=== PATIENT | female | born 1930 | race Caucasian/White ===

== ENCOUNTER 2017-03-15 06:41 | Observation (INO) ==
--- NOTE | 2017-03-15 06:52 | Emergency Department Note ---
Disposition Clinical Impression: Bronchitis, Hypoxia Disposition: Admitted As Inpatient Condition: Good Referrals: Zhang Thayer MD [Primary Care Provider] - URI/Sore Throat HPI - General Chief Complaint: ED Upper Respiratory Infection Stated Complaint: cough/sore throat Time Seen by Provider: 03/15/17 06:50 Source: patient Mode of arrival: private vehicle Limitations: no limitations Nursing Notes Reviewed: Yes Vital Signs Reviewed: Yes - History of Present Illness HPI Narrative: Patient presents to the ED stating that she thinks she has the flu. She is complaining of sore throat and cough for several days. States cough has been dry. She does admit to some shortness of breath and states she has had trouble breathing lying flat over the past 2 days. She also reports rhinorrhea, congestion and sneezing. Denies any fever or chills. No chest pain. No leg swelling. States her back hurts when she coughs. No abdominal pain, nausea, vomiting, diarrhea or constipation. No urinary symptoms. She denies any recent travel or sick contacts. Her only medical problems are hypothyroidism and arthritis. She is a nonsmoker. - Related Data Home Medications Medication Instructions Recorded Confirmed Levothyroxine [Synthroid] 25 mcg PO 0630 03/15/17 03/15/17 Previous Rx's Medication Instructions Recorded Naproxen [Naprosyn] 500 mg PO BID #60 tablet 12/21/15 Allergies Allergy/AdvReac Type Severity Reaction Status Date / Time No Known Allergies Allergy Verified 12/21/15 12:45 Constitutional: Denies: fever, chills, weakness, weight change Eyes: Denies: eye pain, eye discharge, vision change ENT ED: Reports: throat pain. Denies: ear pain, dental pain, hearing loss, epistaxis, congestion, dysphagia Cardiovascular: Denies: chest pain, palpitations, dyspnea on exertion, edema, syncope Respiratory: Reports: cough, dyspnea. Denies: wheezes, hemoptysis, stridor Gastrointestinal: Denies: abdominal pain, nausea, vomiting, diarrhea, constipation, hematemesis, melena, hematochezia Genitourinary: Denies: dysuria, frequency, hematuria, discharge Musculoskeletal: Reports: back pain. Denies: neck pain, arthralgia, myalgia Integumentary: Denies: rash, abrasion, lesions Neurological: Denies: headache, weakness, numbness, paresthesias, confusion, abnormal gait, vertigo Psychiatric: Denies: anxiety, depression, suicidal thoughts, homicidal thoughts , auditory hallucinations, visual hallucinations Endocrine: Denies: fatigue Hematological/Lymphatic: Denies: easy bleeding, easy bruising Allergic/Immunologic: Denies: facial swelling, urticaria URI PMH - Past Medical History Medical history: Reports: arthritis, thyroid disease Psychiatric history: Reports: no psych history - Social History Smoking Status: Never smoker Alcohol use: Reports: none Drug use: Reports: none Physical Exam - General Limitations: no limitations General appearance: alert, in no apparent distress - Head Head exam: atraumatic, normocephalic, normal inspection - Eye Eye exam: Present: normal appearance, PERRL, EOMI - ENT ENT exam: normal exam, normal oropharynx, mucous membranes moist, TM's normal bilaterally, normal external ear exam - Neck Neck exam: Present: normal inspection, full ROM, trachea midline. Absent: lymphadenopathy - Chest Chest inspection: Present: normal inspection, symmetric chest wall rise. Absent : tenderness - Respiratory Respiratory exam: Present: wheezes. Absent: respiratory distress - Expanded Respiratory Exam Location: wheezes: Left, Right, Upper, Lower (scattered) - Cardiovascular Cardiovascular exam: Present: normal rhythm, irregular rhythm, normal heart sounds - Abdominal Exam Abdominal exam: Present: soft, Non-Tender. Absent: tenderness, distention, guarding, rebound, rigidity - Extremities Exam Extremities exam: Present: normal inspection, full ROM. Absent: tenderness, pedal edema Course Course Narrative: Patient presents to the ED with 1 week of sore throat and cough as well as some recent shortness of breath. She is audibly wheezing on exam with oxygen saturation dropping into the upper 80s after ambulating to the treatment room. She is tachycardic with irregular rhythm on monitor and blood pressure is elevated as well. Will obtain EKG along with chest x-ray and given a nebulizer treatment. I suspect primary pulmonary pathology versus cardiac given her symptoms. Review of records show she did have pulmonary function test performed in January that showed an obstructive pattern. When questioned about this test she states she was sent to a information services vice president because of a nodule that they saw in her lung on imaging. She was not given any information about the results of her PFTs. - Reevaluation(s) Reevaluation #1: Wheezing has decreased after nebulizer treatment but is still present. Oxygen saturations was and low 90s and she was placed on 3 L oxygen. Flu swab is negative. Chest x-ray shows bronchitis but no evidence of pneumonia. We will give an additional nebulizer treatment, steroids and start on antibiotics. We will also give cough syrup. Reevaluation #2: Oxygen saturations improved into the mid 90s on 3 L but when she was taken off oxygen she desaturated back to 87% while at rest. She will require admission given her hypoxia. Patient was informed of all test results and need for admission and is agreeable. I spoken to the hospitalist continuous vulcanizing machine operator, Dr. Rosa, who has agreed to admit the patient. Vital Signs Temperature 97.9 F 03/15/17 06:44 Pulse Rate 79 03/15/17 06:44 Respiratory Rate 18 03/15/17 06:44 Blood Pressure 162/98 03/15/17 06:44 O2 Sat by Pulse Oximetry 96 03/15/17 06:44 Temperature 97.9 F 03/15/17 06:44 Pulse Rate 84 03/15/17 08:30 Respiratory Rate 18 03/15/17 08:30 Blood Pressure 158/85 03/15/17 08:30 O2 Sat by Pulse Oximetry 90 03/15/17 08:30 Oxygen Delivery Oxygen Delivery Nasal Cannula Upper Respiratory Infection - Differential Diagnosis Differential Diagnosis: Likely: upper respiratory infection, other viral infection, bronchitis, pneumonia - Lab Data Lab results reviewed: Yes I reviewed the patient's lab results. - Radiology Data Radiology results reviewed: Yes I reviewed the patient's radiology results. ITS Impressions Chest X-Ray 03/15/17 07:02 IMPRESSION: Bronchitis, no evidence of pneumonia D/ / Hernando Fox MD / Hernando Fox MD Interpreting Provider: Hernando Fox MD
[2017-03-15] MEDS ORDERED: Ipratropium/Albuterol Neb 3 ML IH ONE ×2 (07:02→08:03)
[2017-03-15] MEDS ORDERED: methylPREDNISolone 125 MG/2 ML VIAL IM STA (07:56)
[2017-03-15] MEDS ORDERED: Doxycycline 100 MG CAPSULE PO ONE (07:57)
[2017-03-15] MEDS ORDERED: Promethazine/Codeine Oral Sryup 5 ML UDC PO ONE (08:03)
[2017-03-15] MEDS ORDERED: Naloxone 0.4 MG/ML INJ IVP PRN ×2 (09:00→10:02)
[2017-03-15] MEDS ORDERED: Ipratropium/Albuterol Neb 3 ML IH SCH (12:00)
[2017-03-15] MEDS: Ipratropium/Albuterol Neb 3 ML IH SCH ×3 (12:45→20:59)
--- NOTE | 2017-03-15 16:00 | Internal Med History&Physical ---
Date of Encounter: 03/15/17 Time of Encounter: 15:25 Assessment and Plan (1) Dyspnea Current visit: Yes Status: Acute Suspect pulmonary etiology. Will order chest CT to further evaluate. Will order BN peptide in a.m. Qualifiers: Dyspnea type: shortness of breath Qualified Code(s): R06.02 - Shortness of breath; R06.00 - Dyspnea, unspecified; R06.01 - Orthopnea (2) Lung nodule Current visit: Yes Status: Acute Will order chest CT as per above. (3) Azotemia Current visit: Yes Status: Acute Appears to be acute based on previous labs. Will stop Naprosyn and given IV fluids. Recheck labs in a.m. Internal Medicine - H&P: HPI Chief complaint: Dyspnea and weakness Admitted From: Emergency Dept Plans for Post Hospital Care: Home History of present illness: Ms. Chauhan is a 87 year old female who came to emergency room complaining of increasing dyspnea and weakness over the previous 3-4 days. She had a minimally productive cough. She was evaluated in the emergency room felt to have acute bronchitis with hypoxemia. She was [facility] floor for ongoing care needs. Respiratory history is significant for being a lifelong nonsmoker. Chest CT showed a 4.5 mm indeterminate right upper lobe nodule. She denies chronic lung disease otherwise. Past Med Surg Social Fam HX - Past Medical History Medical history: arthritis, thyroid disease Psychiatric history: no psych history - Past Surgical History Surgical History: appendectomy, cholecystectomy, hysterectomy - Social History Smoking Status: Never smoker Smokeless Tobacco Status: No Alcohol use: none Drug use: none Internal Medicine - H&P: Meds Naproxen [Naprosyn] 500 mg PO BID #60 tablet 12/21/15 [Rx] Levothyroxine [Synthroid] 25 mcg PO 0630 03/15/17 [History] 3 Allergy/AdvReac Type Severity Reaction Status Date / Time No Known Allergies Allergy Verified 12/21/15 12:45 All Systems PM: A 10-system review of systems was performed and is negative for pertinent findings except as documented above in the HPI. Review of systems: Gen.: She states her weight has increased approximately 10 pounds in the past year Cardiovascular: She denies VA hypertension heart failure angina DVT or pulmonary embolus Respiratory: As per history of present illness GI: She denies disorders of her liver gallbladder or exocrine pancreas : She denies hematuria dysuria or kidney stones Neurologic: She denies large distribution strokes or seizures. Endocrine: She has hypothyroidism but denies diabetes or hyperlipidemia Hematology/oncology: She denies blood disorders cancers or anemia. Psychiatric: She denies anxiety depression or other mental health issues Musk skeletal: She has rheumatoid arthritis but no known gout or other bone joint or muscle disorders. - Constitutional Vitals: Temp Pulse Resp BP Pulse Ox 98.1 F 76 16 155/66 92 03/15/17 10:03 03/15/17 10:03 03/15/17 12:50 03/15/17 10:03 03/15/17 12:50 Exam: Gen.: She is a well-developed well-nourished female who appears in no severe distress at present time. HEENT: Head is atraumatic and normocephalic. Eyes: EOMI. There is no scleral icterus. Mouth: Mucosa is moist. Neck: Supple and nontender. There is no thyromegaly or adenopathy noted. Heart: Regular with frequent ectopic beats. No murmurs or gallops are heard. Lungs: No wheezes crackles or egophony are heard. She has a few scattered rhonchi. Abdomen: Soft and nontender. No masses or guarding are noted. Extremities: There is no cyanosis edema or clubbing noted. Dorsalis pedis and posttibial pulses are 1-2 over 2 bilaterally. Neurologic: Mental status: She is talkative and a good historian. Cranial nerves: Smile is symmetric. Forehead wrinkles bilaterally. Tongue protrudes midline. EOMI. Motor: There is no pronator drift. Cerebellar: Finger to nose is intact bilaterally. Skin: Warm and dry. - VTE Reasons for not Prescribing Prophylaxis: Treatment not Indicated - Low risk for VTE
[2017-03-15] MEDS: 0.45 % Sodium Chloride w/KCl 20 MEQ/1,000 ML MLS IVC SCH (18:15)
[2017-03-16] MEDS: Ipratropium/Albuterol Neb 3 ML IH SCH ×6 (00:13→20:50)
[2017-03-16] MEDS: Acetaminophen 325 MG TABLET PO PRN ×2 (03:51→17:08)
[2017-03-16] MEDS: 0.45 % Sodium Chloride w/KCl 20 MEQ/1,000 ML MLS IVC SCH ×2 (04:43→15:33)
[2017-03-16] MEDS: Levothyroxine 25 MCG TABLET PO SCH (07:02)
--- NOTE | 2017-03-16 09:54 | Internal Med Progress Note ---
Date of Encounter: 03/16/17 Time of Encounter: 09:45 - Assessment and plan (1) Dyspnea Current Visit: Yes Status: Acute Assessment and plan: March 16. Leukocytosis has developed. Will give Rocephin and Zithromax IV with lactobacillus. Recheck labs in a.m. Anticipate discharge home tomorrow if stable. Qualifiers: Dyspnea type: shortness of breath Qualified Code(s): R06.02 - Shortness of breath; R06.00 - Dyspnea, unspecified; R06.01 - Orthopnea (2) Lung nodule Current Visit: Yes Status: Acute Assessment and plan: March 16. The nodule seen September 2016 resolved but multiple new nodules are present consistent with infectious etiology. Will give antibiotics as per above (3) Azotemia Current Visit: Yes Status: Acute Assessment and plan: March 16. Improved. Continue IV fluids and recheck labs in a.m. - Subjective Interval history: March 16. She has no new complaints. She is still dyspneic and has cough. - Constitutional Vitals: Temp Pulse Resp BP Pulse Ox 97.6 F 79 18 137/67 94 03/16/17 00:00 03/16/17 00:00 03/16/17 00:00 03/16/17 00:00 03/16/17 04:30 Exam: She is sitting on the side of bed and appears slightly dyspneic at rest. She cough during the visit. Her affect is bright and cheerful. I reviewed her medications, lab results, and CT chest report Internal Medicine: Result - Impressions Impressions Chest CT 03/15/17 15:53 IMPRESSION: 1. Interval progression of diffuse multifocal tree-in-bud opacity throughout both lungs, most consistent with an infectious or inflammatory bronchiolitis. 2. Multiple new scattered pulmonary nodules throughout both lungs are likely the continuum of the patient's bronchiolitis. The largest of these measures approximately 1.5 x 0.7 cm within the posterior right upper lobe. However, suggest appropriate clinical treatment, and pulmonary nodule follow up, as advised below. 3. Bilateral lower lobe mucus plugging. 4. Stable small to moderate sized hiatal hernia. RECOMMENDATIONS: Fleischner Society guidelines for follow-up and management of incidentally detected pulmonary nodules: Multiple Solid Nodules: Nodule size greater than 8 mm In a low-risk patient, CT at 3-6 months, then consider CT at 18-24 months. In a high-risk patient, CT at 3-6 months, then CT at 18-24 months. - Low risk patients include individuals with minimal or absent history of smoking and other known risk factors. - High risk patients include individuals with a history or smoking or known risk factors. Radiology 2017 http://pubs.rsna.org/doi/full/10.1148/radiol.[email or web address] D/ / 03/15/2017 19:30:44 Baltazar Davidson MD / gerber Interpreting Provider: Baltazar Davidson MD - VTE Reasons for not Prescribing Prophylaxis: Treatment not Indicated - Low risk for VTE Consult Discharge Plan - Plan
[2017-03-16] MEDS ORDERED: Azithromycin 500 MG in D5% in Water 250 ML IVPB SCH (10:00)
[2017-03-16 10:18] LABS: BUN/Creatinine Ratio 18 (6-26); Blood Urea Nitrogen 16 mg/dL (7-20); Calcium 8.3 mg/dL (8.6-10.8); Carbon Dioxide 25 mEq/L (19-29); Chloride 106 mEq/L (98-109); Glucose 130 mg/dL (70-99); Osmolality,Calculated 293 (280-300); Potassium 4.2 mEq/L (3.5-4.5); eGFR For African Americans > 60 (> 60); eGFR For Non-African Americans 59 (> 60)
[2017-03-16 10:22] LABS: Basophils % 0.1 %; Hematocrit 37.1 % (35.3-44.9); Hemoglobin 11.9 g/dL (11.5-15.4); Immature Granulocytes % 0.6 % (0-4); Lymphocytes # 0.9 K/mcL (0.6-4.6); Lymphocytes % 4.7 %; Mean Corpuscular HGB Conc 32.1 g/dL (31.6-35.5); Mean Corpuscular Volume 90.5 fL (83.0-100.0); Mean Platelet Volume 11.8 fL (9.4-12.4); Monocytes # 1.6 K/mcL (0.0-1.3); Monocytes % 8.5 %; Platelet Count 243 K/mcL (140-400); Red Cell Distribution Width 14.2 % (11.5-14.5); Segmented Neutrophils % 86.1 %
[2017-03-16 10:26] LABS: Sodium 140 mEq/L (136-145)
[2017-03-16 10:37] LABS: Neutrophils # 16.5 K/mcL (1.6-8.9)
[2017-03-16] MEDS: cefTRIAXone 1,000 MG in Water for inj. (sterile) 20 ML 20 ML IVPB SCH (11:31)
[2017-03-16] MEDS: Lactobacillus 1 EACH CAP.SPRINK PO SCH (20:45)
[2017-03-17] MEDS: Ipratropium/Albuterol Neb 3 ML IH SCH ×6 (01:15→20:26)
[2017-03-17] MEDS: 0.45 % Sodium Chloride w/KCl 20 MEQ/1,000 ML MLS IVC SCH ×3 (03:17→12:26)
[2017-03-17] MEDS: Acetaminophen 325 MG TABLET PO PRN ×2 (03:18→12:05)
[2017-03-17 07:16] LABS: Basophils % 0.3 %; Eosinophils % 0.2 %; Hematocrit 38.5 % (35.3-44.9); Hemoglobin 12.2 g/dL (11.5-15.4); Immature Granulocytes % 0.8 % (0-4); Lymphocytes # 1.5 K/mcL (0.6-4.6); Lymphocytes % 9.8 %; Mean Corpuscular HGB Conc 31.7 g/dL (31.6-35.5); Mean Corpuscular Hemoglobin 28.6 pg (28.0-33.3); Mean Corpuscular Volume 90.4 fL (83.0-100.0); Mean Platelet Volume 11.4 fL (9.4-12.4); Monocytes # 1.6 K/mcL (0.0-1.3); Monocytes % 10.9 %; Neutrophils # 11.6 K/mcL (1.6-8.9); Platelet Count 239 K/mcL (140-400); Red Blood Count 4.26 M/mcL (3.82-4.97); Red Cell Distribution Width 14.4 % (11.5-14.5)
[2017-03-17] MEDS: Levothyroxine 25 MCG TABLET PO SCH (07:48)
[2017-03-17] MEDS: *HR* Enoxaparin 40 MG/0.4 ML SYRINGE SQ SCH (07:48)
--- NOTE | 2017-03-17 08:55 | Internal Med Progress Note ---
Date of Encounter: 03/17/17 Time of Encounter: 08:45 - Assessment and plan (1) Bronchiolitis Current Visit: Yes Status: Acute Assessment and plan: March 17. Continue Rocephin, Zithromax, and lactobacillus. We will recheck labs in a.m. (2) Lung nodule Current Visit: Yes Status: Acute Assessment and plan: March 16. The nodule seen September 2016 resolved but multiple new nodules are present consistent with infectious etiology. Will give antibiotics as per above March 17. As per above (3) Azotemia Current Visit: Yes Status: Acute Assessment and plan: March 16. Improved. Continue IV fluids and recheck labs in a.m. March 17. BMP pending. We will reduce IV fluid rate. Recheck labs in a.m. - Subjective Interval history: March 16. She has no new complaints. She is still dyspneic and has cough. March 17. She has no new complaints. She states she feels minimally improved. She reports she is developing cough productive of yellow sputum now. - Constitutional Vitals: Temp Pulse Resp BP Pulse Ox 97.9 F 89 16 156/83 96 03/17/17 06:27 03/17/17 06:27 03/17/17 06:27 03/17/17 06:27 03/17/17 06:27 Exam: She is resting in bed and appears slightly dyspneic. She is taking albuterol neb treatment at this time. Lungs show scattered rhonchi without inspiratory crackles or significant wheezing. Extremities show no edema. I reviewed her medications and lab results. Internal Medicine: Result - Labs CBC & Chem 7: 03/17/17 06:56 03/16/17 04:00 Labs: Short CBC 03/17/17 Range/Units 06:56 WBC 14.9 H (4.3-11.1) K/mcL Hgb 12.2 (11.5-15.4) g/dL Hct 38.5 (35.3-44.9) % Plt Count 239 (140-400) K/mcL Neutrophils # 11.6 H (1.6-8.9) K/mcL - VTE Reasons for not Prescribing Prophylaxis: Treatment not Indicated - Low risk for VTE Consult Discharge Plan - Plan Referrals: Zhang Thayer MD [Primary Care Provider] - 1 week
[2017-03-17 10:19] LABS: BUN/Creatinine Ratio 16 (6-26); Blood Urea Nitrogen 13 mg/dL (7-20); Calcium 8.4 mg/dL (8.6-10.8); Carbon Dioxide 26 mEq/L (19-29); Chloride 106 mEq/L (98-109); Glucose 93 mg/dL (70-99); Osmolality,Calculated 290 (280-300); Potassium 4.3 mEq/L (3.5-4.5); Sodium 140 mEq/L (136-145); eGFR For African Americans > 60 (> 60); eGFR For Non-African Americans > 60 (> 60)
[2017-03-17] MEDS: Lactobacillus 1 EACH CAP.SPRINK PO SCH ×2 (11:46→20:17)
[2017-03-17] MEDS: cefTRIAXone 1,000 MG in Water for inj. (sterile) 20 ML 20 ML IVPB SCH (11:48)
[2017-03-17] MEDS: Azithromycin 500 MG in D5% in Water 250 ML IVPB SCH (12:06)
[2017-03-18] MEDS: Ipratropium/Albuterol Neb 3 ML IH SCH ×4 (00:28→12:38)
[2017-03-18] MEDS: Levothyroxine 25 MCG TABLET PO SCH (05:44)
[2017-03-18] MEDS: 0.45 % Sodium Chloride w/KCl 20 MEQ/1,000 ML MLS IVC SCH (05:44)
[2017-03-18] MEDS: *HR* Enoxaparin 40 MG/0.4 ML SYRINGE SQ SCH (05:45)
[2017-03-18 06:06] LABS: Basophils % 0.3 %; Eosinophils # 0.1 K/mcL (0.0-0.6); Eosinophils % 0.4 %; Hemoglobin 12.4 g/dL (11.5-15.4); Immature Granulocytes % 0.8 % (0-4); Lymphocytes # 2.1 K/mcL (0.6-4.6); Lymphocytes % 18.4 %; Mean Corpuscular HGB Conc 31.8 g/dL (31.6-35.5); Mean Corpuscular Volume 91.1 fL (83.0-100.0); Mean Platelet Volume 11.8 fL (9.4-12.4); Monocytes # 1.4 K/mcL (0.0-1.3); Neutrophils # 7.8 K/mcL (1.6-8.9); Platelet Count 237 K/mcL (140-400); Red Blood Count 4.28 M/mcL (3.82-4.97); Red Cell Distribution Width 14.4 % (11.5-14.5); Segmented Neutrophils % 68.1 %
[2017-03-18 06:27] LABS: BUN/Creatinine Ratio 12 (6-26); Blood Urea Nitrogen 9 mg/dL (7-20); Calcium 8.6 mg/dL (8.6-10.8); Carbon Dioxide 26 mEq/L (19-29); Chloride 105 mEq/L (98-109); Glucose 99 mg/dL (70-99); Osmolality,Calculated 293 (280-300); Potassium 4.1 mEq/L (3.5-4.5); Sodium 142 mEq/L (136-145); eGFR For African Americans > 60 (> 60); eGFR For Non-African Americans > 60 (> 60)
[2017-03-18 06:40] VITALS: BP 132/70
[2017-03-18] MEDS: cefTRIAXone 1,000 MG in Water for inj. (sterile) 20 ML 20 ML IVPB SCH (08:20)
[2017-03-18] MEDS: Lactobacillus 1 EACH CAP.SPRINK PO SCH (08:21)
[2017-03-18] MEDS: Azithromycin 500 MG in D5% in Water 250 ML IVPB SCH (11:08)
--- NOTE | 2017-03-18 12:38 | Discharge Summary ---
Date of Encounter: 03/18/17 Time of Encounter: 12:25 - Discharge Diagnosis (1) Bronchiolitis Priority: Primary Status: Acute (2) Lung nodule Priority: Secondary Status: Acute (3) Azotemia Priority: Secondary Status: Resolved - Discharge Medications Prescriptions: Cefuroxime PO [Ceftin] 500 mg PO Q12HR #8 tablet Azithromycin [Zithromax] 250 mg PO DAILY #4 tablet Lactobacillus [Culturelle] 1 each PO BID #8 cap.sprink Home Medications: Levothyroxine [Synthroid] 25 mcg PO 0630 03/15/17 [History] Azithromycin [Zithromax] 250 mg PO DAILY #4 tablet 03/18/17 [Rx] Cefuroxime PO [Ceftin] 500 mg PO Q12HR #8 tablet 03/18/17 [Rx] Lactobacillus [Culturelle] 1 each PO BID #8 cap.sprink 03/18/17 [Rx] Allergies/Adverse Reactions: 3 Allergy/AdvReac Type Severity Reaction Status Date / Time No Known Allergies Allergy Verified 12/21/15 12:45 Date of admission: 03/16/17 09:57 Primary care physician: Zhang Thayer MD - Patient Status Disposition: Home, Self-Care Condition: Good Functional capacity at discharge: independent ambulation Overall status at discharge: patient is progressing back to baseline - Discharge Instructions Follow Up With: Zhang Thayer MD [Primary Care Provider] - 1 week Forms: ED Satisfaction Letter - Diet and Activity Activity: resume usual activities as tolerated Diet: advance to your usual diet Hospital course: Ms. Chauhan is a 87 year old female who came to emergency room complaining of increasing dyspnea and weakness over the previous 3-4 days. She had a minimally productive cough. She was evaluated in the emergency room felt to have acute bronchitis with hypoxemia. She was admitted to [facility] for ongoing care needs. Initial orders were written by the emergency room physician. I saw her on March 15 and performed a history and physical. Chest CT was done to further evaluate. There was interval progression of diffuse multifocal tree-in-bud opacities throughout both lungs consistent with infectious or inflammatory bronchiolitis. There were multiple new scattered pulmonary nodules throughout both lungs. There was resolution of a previously seen posterior right upper lobe nodule. There was bilateral lower lobe mucous plugging. Repeat CT scan is recommended in 3-6 months. Her PCP can order this. He was started on Rocephin, Zithromax, and Lactobacillus. She had good clinical response WBC decreasing to 11.5 and resolution of the left shift on differential. She will continue with antibiotic and probiotic for or additional days after discharge. IV fluids were given and azotemia resolved with creatinine decreasing to 0.76 and estimated GFR greater than 60. Her Bn peptide improved 192 by day of discharge. On March 18 I felt she was stable for discharge home. She will follow with her PCP Dr. Thayer within 1 week. Room air oximetry be checked on a 6 minute walk prior to discharge. - Time Spent with Patient Total time spent providing and/or coordinating discharge services: - Constitutional Vitals: Temp Pulse Resp BP Pulse Ox 98.3 F 84 20 132/70 91 03/18/17 06:38 03/18/17 06:38 03/18/17 08:33 03/18/17 06:38 03/18/17 10:44 - VTE Reasons for not Prescribing Prophylaxis: Treatment not Indicated - Low risk for VTE
--- NOTE | 2017-03-18 15:51 | Electrocardiograph Report ---
[address] [place], [place] [address] Test Date: 2017-03-15 Pat Name: Jennifer Chauhan Department: [id number] Room: [facility] Gender: F Extrusion Engineer: [id number] : 1930 Requested By: Mary Kate Ogden Order Number: [id number] Reading MD: Rosendo Alvarez MD Measurements Intervals [place] Rate: 97 P: 67 ME: 135 QRS: 52 QRSD: 78 T: 51 QT: 322 QTc: 377 Interpretive Statements SINUS RHYTHM WITH FREQUENT SUPRAVENTRICULAR PREMATURE COMPLEXES Electronically Signed On 03-18-2017 15:50:13 EST by Rosendo Alvarez MD
== END 2017-03-18 13:30 | disposition home or self-care (01) | DRG 202 ==
LOC: EMEROOPIK 06:41 → INPPIK 06:41
PROVIDERS: ADMIT Internal Medicine; ATTEND Internal Medicine